=== PATIENT | female | born 1980 | race Caucasian/White ===

== ENCOUNTER 2016-10-24 16:43 | Inpatient (IN) | payer MEDICAID ==
[~2016-10-24] VITALS: Ht 172.7 cm; Wt 108.9 kg
[2016-10-24 17:20] LABS: BASOPHILS 0.1 % (0.0-2.0); EOSINOPHILS 1.8 % (0-7); HEMATOCRIT 35.9 % (36.0-48.0); HEMOGLOBIN 11.8 g/dL (12-16); IMMATURE GRANULOCYTES 0.6 % (0-5); LYMPHOCYTES 17.7 % (15-50); MCH 30.3 pg (26.0-34.0); MCHC 32.9 g/dL (31.0-37.0); MCV 92.3 fL (80.0-100.0); MEAN PLATELET VOLUME 10.2 fL (7.4-10.4); MONOCYTES 9.4 % (2-11); NEUTROPHILS 70.4 % (40-80); PLATELET COUNT 185 10x3/uL (130-400); RBC 3.89 10x6/uL (4.00-5.40); RDW 13.5 % (11.5-14.5); WBC 8.5 10x3/uL (4.8-10.8)
[2016-10-24 17:21] LABS: APPEARANCE CLOUDY (CLEAR); BILIRUBIN NEGATIVE (NEGATIVE); COLOR DK YELLOW (YELLOW); GLUCOSE NEGATIVE (NEGATIVE); KETONE NEGATIVE (NEGATIVE); LEUKOCYTE ESTERASE TRACE (NEGATIVE); NITRITE NEGATIVE (NEGATIVE); PROTEIN NEGATIVE (NEGATIVE); SPECIFIC GRAVITY 1.015 (1.005-1.020)
[2016-10-24 17:22] LABS: RED CELLS - URINE 0-5 /hpf (0-5)
[2016-10-24 17:23] LABS: BACTERIA MODERATE /hpf (NONE SEEN)
[2016-10-24 17:33] LABS: ALBUMIN 3.1 g/dL (3.4-5.0); ALKALINE PHOSPHATASE 271 U/L (46-116); ALT (SGPT) 164 U/L (10-68); AMYLASE - SERUM 115 U/L (25-115); BILIRUBIN - TOTAL 0.94 mg/dL (0.2-1.3); CALC OSMOLALITY 279 mosm/kg (275-300); CALCIUM 8.9 mg/dL (8.5-10.1); CARBON DIOXIDE 27.6 mmol/L (21.0-32.0); CHLORIDE - SERUM 105 mmol/L (98-107); CREATININE - SERUM 0.6 mg/dL (0.6-1.3); GLUCOSE 84 mg/dL (74-106); LIPASE 1300 U/L (73-393); PROTEIN - SERUM 7.1 g/dL (6.4-8.2); SODIUM 142 mmol/L (136-145); UREA NITROGEN 6 mg/dL (7-18); eGFR NON AFRICAN AMERICAN > 90 mL/min (90-120)
[2016-10-25] MEDS ORDERED: FERROUS SULFAT325 MG PO (02:29)
[2016-10-25] MEDS ORDERED: PRENATAL COMPLE1 TAB PO (02:29)
[2016-10-25] MEDS ORDERED: OYST-CAL-5001 TAB PO (02:30)
[2016-10-25 02:31] VITALS: BP 124/70; BMI 36.5
[2016-10-25] MEDS ORDERED: VITAMIN D3400 UNI1 PO (02:31)
--- NOTE | 2016-10-25 02:47 | NUR ---
ADMISSION ASSESSMENT COMPLETED. PT IN BED WITH HOB ELEVATED 30 DEGREES RESTING COMFORTABLY AT THIS TIME. PAIN 2-12/20, RUQ, STATES THAT PAIN INCREASED WITH RN PALPATING ABD. DISCUSSED ORDERED PAIN MEDICATION AND PT REFUSES AT THIS TIME. LR D5W INFUSION INITIATED VIA PUMP TO LEFT BREAT PIV AT 100 MLS/HR PER ORDER. ICE WATER, JELLO, AND CHICKEN NOODLE SOUP PROVIDED TO PATIENT PER REQUEST. ORIENTED TO ROOM AND CL USE, VERBALIZED UNDERSTANDING. SPOUSE LEFT UNIT TO GO HOME TO GET CLOTHES AND WILL RETURN SHORTLY. BED IN LOW POSITION. CL/PHONE WITHIN PT REACH. DENIES NEEDS AT THIS TIME. WILL CONT TO MONITOR AND ASSIST PRN.
--- NOTE | 2016-10-25 03:21 | NUR ---
FHT OBTAINED VIA DOPPLER, 150'S-160'S. PT STATES THAT ON U/S FHR WAS IN THE 150'S WELL.
--- NOTE | 2016-10-25 03:27 | NUR ---
PAIN 6/10, REQUESTED PAIN MEDICATION. PAIN TO RUQ OF ABD, SHARP/STABBING/ACHING. "IT FEELS ALMOST LIKE A BRUISE FEELS WHEN YOU MASH ON IT." 2 MG IVP MORPHINE GIVEN OVER 3 MINUTES. INSTRUCTED PATIENT AND SPOUSE ON MORPHINE AND POSSIBLE SIDE EFFECTS, VERBALIZED UNDERSTANDING. REINFORCED USE OF CL FOR ASSISTANCE OOB D/T MORPHINE AND INCREASED RISK FOR FALLS, VERBALIZED UNDERSTANDING. SPOUSE RETURNED TO ROOM FROM GOING HOME, PILLOW AND BLANKET PROVIDED.
--- NOTE | 2016-10-25 04:05 | NUR ---
PAIN REASSESSMENT COMPLETED. PT WITH EYES CLOSED BUT OPENED WHEN RN OPENED DOOR, PAIN 2/10 AT THIS TIME. DENIES ADDITIONAL NEEDS. SPOUSE RESTING WITH EYES CLOSED IN RECLINER AT BEDSIDE.
--- NOTE | 2016-10-25 04:48 | NUR ---
ROUNDS MADE. SPOUSE AT BEDSIDE. PT SLEEPING AT THIS TIME. RESPIRTATIONS REGULAR. NO S/S OF DISTRESS NOTED. WILL CONT TO MONITOR
--- NOTE | 2016-10-25 06:37 | NUR ---
ROUNDS MADE. PT SLEEPING AT THIS TIME. RESPIRATIONS REGULAR, HOB ELEVATED TO 30 DEGREES. NO S/S OF DISTRESS NOTED. BED IN LOW POSITION. CL/PHONE WITHIN REACH. UPPER SIDE RAILS RAISED X2.
--- NOTE | 2016-10-25 07:45 | NUR ---
RECEIVED PT SITTING IN BED WITH AT BEDSIDE. VITALS TAKEN AND ASSESSMENT MADE AND DOCUMENTED IN FLOW SHEET. STATES "ABDOMEN IS SORE". STATES THAT SHE IS 'WAITING FOR SOMEONE TO TELL ME IF I AM GOING TO HAVE SURGERY TODAY FOR MY GALLBLADDER'. WILL CHECK WITH SURGERY AND/OR DR TO SEE STATIS.
[2016-10-25 07:48] LABS: ALBUMIN 2.5 g/dL (3.4-5.0); ALKALINE PHOSPHATASE 265 U/L (46-116); ALT (SGPT) 188 U/L (10-68); CALC OSMOLALITY 276 mosm/kg (275-300); CALCIUM 7.8 mg/dL (8.5-10.1); CARBON DIOXIDE 26.2 mmol/L (21.0-32.0); CHLORIDE - SERUM 106 mmol/L (98-107); CREATININE - SERUM 0.5 mg/dL (0.6-1.3); GLUCOSE 85 mg/dL (74-106); POTASSIUM - SERUM 3.5 mmol/L (3.5-5.1); PROTEIN - SERUM 5.5 g/dL (6.4-8.2); SODIUM 141 mmol/L (136-145); UREA NITROGEN 5 mg/dL (7-18); eGFR NON AFRICAN AMERICAN > 90 mL/min (90-120)
--- NOTE | 2016-10-25 08:10 | NUR ---
PT WAS SERVED REG MEAL BUT DID NOT EAT ON THE CHANCE THAT SHE MAY HAVE SURGERY. IV RUNNING TO LEFT BREAST IS PATENT. THIS NURSE CALLED SURGERY AND THERE IS NO SURGERY SCHEDULED FOR PT TODAY. HAVE A PAGE IN TO DR. JEAN TO FOLLOW UP. S/R UP X 2, BED IN LOWEST POSITION, CALL LIGHT WITHIN REACH.
[2016-10-25 08:17] VITALS: BP 124/82
--- NOTE | 2016-10-25 08:25 | NUR ---
DR JEAN TO ROOM.
--- NOTE | 2016-10-25 09:10 | NUR ---
PT. STATES THAT SHE IS NOT IN PAIN. O ON NUMERIC SCALE. DR HAS ORDERED LAB AND WILL WAIT UNTIL IT IS BACK TO SEE IF SHE IS NPO OR ON CLEAR LIQUIDS. PT STATES NO NEEDS AT THIS TIME. WILL CONTINUE TO MONITOR.
[2016-10-25 09:56] VITALS: Ht 172.7 cm; Wt 108.9 kg
--- NOTE | 2016-10-25 11:30 | NUR ---
CALLED DR. JEAN TO CONFIRM GIVING ZOSYN SINCE THE INFORMATION GIVEN FOR CONTARINDICATION STATES "EXCLUSION CRITERIA: IMUNOCOMPRIMISED, ACUTE PANCREATITIS, ALLERGY OR NPO." HE STATES THAT IT IS FIRST LINE FOR PANCREATITIS AND TO GIVE.
--- NOTE | 2016-10-25 12:30 | NUR ---
CALLED PHARMACY AND ASKED THEM TO PLEASE DELIVER THE MEDICATIONS FOR PT.
[2016-10-25 12:37] VITALS: BP 121/72
--- NOTE | 2016-10-25 12:41 | NUR ---
PT SITTING IN BED LOOKING ON HER PHONE. STATES THAT THE BROTH WAS TOO SALTY BUT THAT SHE DID EAT THE JELLO. LAB REPORT DID COME IN AND SHE IS ON THE CLEAR LIQUID DIET. STATES NO NEEDS AT THIS TIME.
--- NOTE | 2016-10-25 13:15 | NUR ---
DISCUSSED PATIENT'S PLAN OF CARE FOR THIS HOSPITAL STAY. SHE STATES THAT SHE IS WITHOUT UNCONTROLLED PAIN AT THIS TIME. FOB AND PRIMARY SCHOOL AGED CHILDREN AT THE BEDSIDE. SHE DENIES NEEEDS AT THIS TIME.
--- NOTE | 2016-10-25 14:00 | NUR ---
PAGED DR JEAN. PT FACE FLUSHED STATES THAT HER THROAT AND ROOF OF HER MOUTH ARE SCRATCHY AND SHE 'FEELS FUNNY'.
--- NOTE | 2016-10-25 14:13 | NUR ---
DR. JEAN RETURNED PAGE. THIS NURSE RELAYED THE PTS SYMPTOMS OF RED FACE, SCRATCHY THROAT AND ROOF OF MOUTH, HOARSENESS, AND 'FEELING FUNNY, LIGHT HEADED, AND MY HEAD HURTS'. HE CONFIRMED THAT WE SHOULD DISCONTINUE THE ZOSYN AND HE WILL PRESCRIBE ANOTHER ANTIBIOTIC. VITALS WERE TAKEN AT 1355 WITH B/P OF 97/59, PULSE OX OF 99, PULSE OF 70, RESP 18.
--- NOTE | 2016-10-25 14:25 | NUR ---
CALLED DR HUGO AND INFORMED OF PT REACTION TO ZOSYN. RELAYED SIGNS AND SYMPTOMS. STATES THAT ZOSYN IS CLASS B DRUG AND NO THREAT TO FETUS. ASKED IF BENADRYL WOULD BE IN ORDER AND DR HUGO STATES THAT IT WOULD BE NO PROBLEM TO THE FETUS BUT IT WOULD BE DR JEAN'S CALL.
--- NOTE | 2016-10-25 14:40 | NUR ---
REASSESSED PT REDNESS HAS NOW GONE FROM FACE ONLY TO HER NECK. VOICE IS LESS HOARSE SINCE LAST ASSESSED. PT STATES THAT HER 'HEAD IS LESS STUFFY AND I THINK I AM GETTING BETTER'. DISCUSSED SIGNS AND SYMPTOMS TO REPORT TO NURSE. CALL LIGHT IS WITHIN REACH. STATES THAT SHE ISN'T FEELING LIGHT HEADED ANYMORE. WILL CONTINUE TO MONITOR CLOSELY.
--- NOTE | 2016-10-25 15:08 | NUR ---
PT LYING IN BED STATES SHE 'THINKS THAT IT IS GETTING BETTER BECAUSE MY HEAD ISN'T HURTING LIKE IT WAS'. ADMINISTERED BENADRYL 25 ORDERED. PROVIDED FRESH ICE WATER AND JELLO. ENCOURAGED PT TO DRINK. STATES THAT SHE WANTS TO REST NOW. WILL CONTINUE TO MONITOR.
--- NOTE | 2016-10-25 17:53 | NUR ---
PT RING ATTACHER LIGHT. INFORMED ME THAT SHE RECEIVED A REGULAR TRAY INSTEAD OF CLEAR LIQUIDS. CALLED DIETARY FOR A CLEAR LIQUID TRAY. DENIES OTHER NEEDS AT THIS TIME. PHONE AND CALL LIGHT WITHIN REACH. SRU X2. BED IN LOWEST POSITION.
--- NOTE | 2016-10-25 19:10 | NUR ---
RCVD PT FROM DAY SHIFT RN. PT SITTING UP IN BED AAOX4. DENIES PAIN AT THIS TIME. BREATH SOUNDS CLEAR & UNLABORED X2. S1, S2. 22 G PIV TO LT BREAST WITH LR @ 100 ML/HR. BOWEL SOUNDS ACTIVE X4. ABD SLIGHTLY TENDER ON PALPATION DUE TO PANCREATITIS. SKIN WNL FOR PATIENT. PT IS VOIDING WELL. PT IS 19 WEEKS AND REPORTS FEELING MOVEMENT AT THIS TIME. FAMILY IS AT BEDSIDE. PPP. NO EDEMA NOTED BLE. PT DENIES NEEDS AT THIS TIME. WILL CONTINUE TO MONITOR. BED LOW, WHEELS LOCKED, CL IN REACH. SIDE RAILS UP X2.
--- NOTE | 2016-10-25 19:44 | NUR ---
PATIENT IVF INFUSING. SHE IS WITHOUT NEEDS AT THIS TIME.
--- NOTE | 2016-10-25 20:53 | NUR ---
RN TO BEDSIDE. MAXIPIME IVPB GIVEN PER ORDERS. SEE EMAR. PT TOLERATED WELL WITH NO IMMEDIATE SIGNS OF ADVERSE REACTION. PT DENIES FURTHER NEEDS. WILL CONTINUE POC.
--- NOTE | 2016-10-25 20:54 | NUR ---
CURRENT D5 LR INFUSION COMPLETE. OLD BAG DOWN. NEW BAG UP TO PRESENT TUBING. WILL CONTINUE POC.
--- NOTE | 2016-10-25 21:02 | NUR ---
ROUNDS MADE. PT LYING ON BACK READING A BOOK. PT DENIES NEEDS AT THIS TIME. WILL CONTINUE TO MONITOR.
[2016-10-25 23:55] VITALS: BP 111/67
--- NOTE | 2016-10-26 00:09 | NUR ---
ROUNDS MADE. PT SITTING UP WATCHING TV. SPOUSE AT BEDSIDE. PT DENIES NEEDS. V/S OBTAINED. WILL CONTINUE TO MONITOR.
[2016-10-26 04:20] VITALS: BP 102/62
--- NOTE | 2016-10-26 04:20 | NUR ---
ROUNDS MADE. VSS. ICE WATER GIVEN PER REQUEST. PT STATES THAT SHE WAS GIVEN AND ANBX EARILER TODAY AND HAD A REAX. REQUESTED TO KNOW NAME OF MED, ORDERS REVIEWED. ALLERGY LIST UPDATED AND ALLEGRY BAND PLACED. SPOUSE REMAINS AT BEDSIDE. DENIES ADDITIONAL NEEDS AT THIS TIME.
[2016-10-26 07:30] VITALS: BP 87/47
--- NOTE | 2016-10-26 07:30 | NUR ---
PT LYING TO RIGHT SIDE IN BED. WAKES UPON ENTERING ROOM. SITS UP IN BED FOR VS. VSS. DENIES C/O OR NEEDS.
--- NOTE | 2016-10-26 07:45 | NUR ---
PT AWAKE, ALERT, ORIENTED, RESTING IN BED. IV INFUSING INTO LEFT CHEST PERIPHERAL IV VIA PUMP. FHT'S OBTAINED PER RAMSES GOLD. PT TOLERATING CL DIET.
[2016-10-26 08:02] LABS: BASOPHILS 0.2 % (0.0-2.0); EOSINOPHILS 2.7 % (0-7); HEMATOCRIT 31.8 % (36.0-48.0); HEMOGLOBIN 10.3 g/dL (12-16); IMMATURE GRANULOCYTES 0.5 % (0-5); LYMPHOCYTES 33.5 % (15-50); MCH 30.1 pg (26.0-34.0); MCHC 32.4 g/dL (31.0-37.0); MEAN PLATELET VOLUME 10.3 fL (7.4-10.4); NEUTROPHILS 54.1 % (40-80); PLATELET COUNT 154 10x3/uL (130-400); RBC 3.42 10x6/uL (4.00-5.40); RDW 13.8 % (11.5-14.5); WBC 5.6 10x3/uL (4.8-10.8)
--- NOTE | 2016-10-26 08:05 | NUR ---
PT AMBULATES BACK TO BED FROM BR. FHR 145 VIA DOPPLER. PT STATES BABY ACTIVE AT THIS TIME. DENIES C/O PAIN OR NEEDS.
[2016-10-26 08:25] LABS: ALBUMIN 2.5 g/dL (3.4-5.0); ALKALINE PHOSPHATASE 218 U/L (46-116); ALT (SGPT) 143 U/L (10-68); BILIRUBIN - TOTAL 0.46 mg/dL (0.2-1.3); CALC OSMOLALITY 273 mosm/kg (275-300); CALCIUM 8.4 mg/dL (8.5-10.1); CARBON DIOXIDE 26.2 mmol/L (21.0-32.0); CHLORIDE - SERUM 106 mmol/L (98-107); CREATININE - SERUM 0.6 mg/dL (0.6-1.3); GLUCOSE 87 mg/dL (74-106); LIPASE 147 U/L (73-393); POTASSIUM - SERUM 3.5 mmol/L (3.5-5.1); PROTEIN - SERUM 5.9 g/dL (6.4-8.2); SODIUM 139 mmol/L (136-145); UREA NITROGEN 4 mg/dL (7-18); eGFR NON AFRICAN AMERICAN > 90 mL/min (90-120)
[2016-10-26 08:26] LABS: AMYLASE - SERUM 46 U/L (25-115)
--- NOTE | 2016-10-26 09:37 | NUR ---
RESTING EASILY ON RIGHT SIDE WITH EYES CLOSED, EVEN RESP.
--- NOTE | 2016-10-26 10:38 | NUR ---
PT CONTINUES TO REST EASILY ON SIDE. LEFT UNDISTURBED.
--- NOTE | 2016-10-26 10:52 | NUR ---
DR PHOENIX HERE. VISITS WITH PT.
--- NOTE | 2016-10-26 11:00 | NUR ---
CALLED TO PT'S ROOM. STATES HER IV IS LEAKING. UPON INSPECTIONS LEAKING AT SPIKE SITE OF BAG. NEW BAG PLACED.
--- NOTE | 2016-10-26 12:08 | NUR ---
CL DIET PROVIDED.
--- NOTE | 2016-10-26 12:17 | NUR ---
SITTING UP IN BED READING. NO NEEDS.
--- NOTE | 2016-10-26 13:26 | NUR ---
SITTING UP IN BED READING. CHEERFUL DEMEANOR. NO NEEDS.
--- NOTE | 2016-10-26 14:05 | NUR ---
IV ATB HUNG PER ORDER.
[2016-10-26 14:15] VITALS: BP 101/60
--- NOTE | 2016-10-26 15:07 | NUR ---
SITTING UP IN BED READING. NO NEEDS.
--- NOTE | 2016-10-26 17:20 | NUR ---
PT C/O KAY AND NAUSEA.
--- NOTE | 2016-10-26 17:27 | NUR ---
CALL TO DR. PHOENIX. ORDER FOR TYLENOL REC'D.
--- NOTE | 2016-10-26 17:41 | NUR ---
TYLENOL 650 MG PO GIVEN FOR KAY.
--- NOTE | 2016-10-26 18:07 | NUR ---
RESTING IN BED. WANTS TO WAIT UNTIL HERE FOR SHOWER.
--- NOTE | 2016-10-26 18:14 | NUR ---
JELLO AND APPLE JUICE PROVIDED.
[2016-10-26 19:35] VITALS: BP 100/57
--- NOTE | 2016-10-26 19:35 | NUR ---
AWAKE DURING INITIAL ROUNDS. INTRODUCED SELF. V/S TAKEN. ASSESSMENT DONE. STATUS Dx: PANCREATITIS / 19weeks GESTATION. IVF--D5LR TO L CHEST @ 100cc/hr. IV SITE OK. DENIES PAIN AT THIS TIME. FAMILY IN THE ROOM.
--- NOTE | 2016-10-26 19:40 | NUR ---
DR. JOHNSON HERE AND SPOKE WITH PT--INFORMED HER OF POSSIBLE GB SURGERY ON FRIDAY.
--- NOTE | 2016-10-26 19:50 | NUR ---
FHT--150'S OBTAINED ON RLQ DONE BY Raghavendra TERESA RN.
--- NOTE | 2016-10-26 22:29 | NUR ---
MAXIPIME 1G IVPB ANTIBIOTIC INFUSING. NO ADVERSE REACTION NOTED.
[2016-10-26 23:20] VITALS: BP 113/69
--- NOTE | 2016-10-27 | NUR ---
NEW IV BAG--D5LR 1000cc HUNG.
--- NOTE | 2016-10-27 02:30 | NUR ---
EYES CLOSED. LEFT UNDISTURBED.
--- NOTE | 2016-10-27 04:45 | NUR ---
APPEARS TO BE ASLEEP.
--- NOTE | 2016-10-27 06:19 | NUR ---
MAXIPIME 1G IVPB ANTIBIOTIC INFUSING. NO ADVERSE REACTION NOTED. SLEPT FAIRLY WELL DURING THE NIGHT. CONTINUING PLAN OF CARE.
[2016-10-27 07:42] VITALS: BP 101/59
--- NOTE | 2016-10-27 07:45 | NUR ---
PT AWAKE, ALERT, ORIENTED, SITTING UP IN BED, CHEERFUL DEMEANOR. IV INFUSING VIA PUMP. FHT'S OBTAINED EASILY. NO NEEDS AT THIS TIME. CL DIET PROVIDED. PT ANTICIPATES LAP CHOLY IN AM.
--- NOTE | 2016-10-27 09:20 | NUR ---
TOLERATED CL DIET.
--- NOTE | 2016-10-27 10:42 | NUR ---
MED GIVEN, NEW IV BAG HUNG. NO NEEDS.
--- NOTE | 2016-10-27 11:22 | NUR ---
DR. PHOENIX IN TO SEE PT.
--- NOTE | 2016-10-27 11:54 | NUR ---
CONSENTS OBTAINED AND WITNESSED FOR LAP CHOLY FOR 1-16. ADVISED PT SHE IS ON SURGERY [facility] FOR NOON.
--- NOTE | 2016-10-27 12:26 | NUR ---
CLEAR LIQUID DIET SERVED.
--- NOTE | 2016-10-27 13:24 | NUR ---
PT UP AND ABOUT IN ROOM. LINENS CHANGED. ADVISED NPO AFTER MIDNIGHT TONIGHT.
--- NOTE | 2016-10-27 14:02 | NUR ---
IV ATB HUNG TO EXISTING IV. SITTING UP IN BED NO NEEDS.
--- NOTE | 2016-10-27 15:24 | NUR ---
SITTING UP IN BED WATCHING TV.
--- NOTE | 2016-10-27 16:45 | NUR ---
SITTING UP IN BED TALKING WITH FAMILY.
--- NOTE | 2016-10-27 19:00 | NUR ---
DR. JOHNSON HERE AND SPOKE WITH PATIENT BRIEFLY. FOR GB SURGERY TOMORROW.
[2016-10-27 19:35] VITALS: BP 104/58
--- NOTE | 2016-10-27 19:35 | NUR ---
RE-INTRODUCED SELF. V/S TAKEN. ASSESSMENT DONE. STATUS 19 WEEKS ANTEPARTUM / PANCREATITIS. WITH IVF D5LR TO L CHEST AT 100cc/hr. IV SITE OK. REMINDED PT TO BE NPO AFTER MIDNIGHT. FOR GB SURGERY TOMORROW. VERBALIZED UNDERSTANDING.
--- NOTE | 2016-10-27 19:50 | NUR ---
FHT OBTAINED--150's-160's MID LQ.
--- NOTE | 2016-10-27 22:40 | NUR ---
MAXIPIME 1G IVPB INFUSING. NO ADVERSE REACTION NOTED. NEW BAG OF D5LR STARTED.
[2016-10-27 23:34] VITALS: BP 96/64
--- NOTE | 2016-10-27 23:34 | NUR ---
V/S STABLE. NPO AFTER MIDNIGHT.
[2016-10-28] VITALS (9 sets, daily range): BP systolic 101–142; BP diastolic 61–93
--- NOTE | 2016-10-28 03:30 | NUR ---
EYES CLOSED. LEFT UNDISTURBED.
--- NOTE | 2016-10-28 05:55 | NUR ---
SUPERINTENDENT COMPRESSOR STATIONS HERE TO DRAW AM LAB.
[2016-10-28 06:22] LABS: BASOPHILS 0.2 % (0.0-2.0); EOSINOPHILS 2.3 % (0-7); HEMATOCRIT 30.6 % (36.0-48.0); HEMOGLOBIN 10.3 g/dL (12-16); IMMATURE GRANULOCYTES 0.5 % (0-5); LYMPHOCYTES 33.8 % (15-50); MCH 30.9 pg (26.0-34.0); MCHC 33.7 g/dL (31.0-37.0); MCV 91.9 fL (80.0-100.0); MEAN PLATELET VOLUME 10.7 fL (7.4-10.4); MONOCYTES 9.9 % (2-11); NEUTROPHILS 53.3 % (40-80); PLATELET COUNT 144 10x3/uL (130-400); RBC 3.33 10x6/uL (4.00-5.40); RDW 13.2 % (11.5-14.5); WBC 5.7 10x3/uL (4.8-10.8)
--- NOTE | 2016-10-28 06:30 | NUR ---
SLEPT FAIRLY WELL DURING THE NIGHT. CONTINUING PLAN OF CARE. REMAINED NPO AFTER MIDNIGHT.
[2016-10-28 06:45] LABS: ALBUMIN 2.4 g/dL (3.4-5.0); ALKALINE PHOSPHATASE 159 U/L (46-116); AMYLASE - SERUM 35 U/L (25-115); CALC OSMOLALITY 274 mosm/kg (275-300); CALCIUM 7.7 mg/dL (8.5-10.1); CARBON DIOXIDE 26.6 mmol/L (21.0-32.0); CHLORIDE - SERUM 105 mmol/L (98-107); CREATININE - SERUM 0.6 mg/dL (0.6-1.3); GLUCOSE 82 mg/dL (74-106); LIPASE 95 U/L (73-393); MAGNESIUM - SERUM 1.5 mg/dL (1.8-2.4); PHOSPHOROUS 3.9 mg/dL (2.5-4.9); POTASSIUM - SERUM 3.2 mmol/L (3.5-5.1); PROTEIN - SERUM 5.3 g/dL (6.4-8.2); SODIUM 140 mmol/L (136-145); UREA NITROGEN 4 mg/dL (7-18); eGFR NON AFRICAN AMERICAN > 90 mL/min (90-120)
[2016-10-28 06:48] LABS: ALT (SGPT) 91 U/L (10-68)
--- NOTE | 2016-10-28 07:40 | NUR ---
PT WAS RECEIVED LYING IN BED. SHE STATES THAT SHE IS SUPPOSE TO HAVE GALLBLADDER SURGERY ABOUT 12. SHE OFFERS NO COMPLAINTS AT THIS TIME. GEN- AWAKE AND ALERT. LUNGS- CLEAR. HEART- RRR, ABD- SOFT, WITH TENDERNESS NOTED. BED IS LOW, SIDE RAILS UP X 2 AND CALL LIGHT IN REACH. CONSENT FOR SURGERY SIGNED AND OTHE PAPERS REVEIWED AND COMPLETED.
--- NOTE | 2016-10-28 11:50 | NUR ---
SURGERY CALLED FOR ME TO GIVE PREOP MEDS. PRE OP MEDS GIVEN. CHECKLIST CHECKED WITH JOSE AND CONSENTS REVIEWED.
--- NOTE | 2016-10-28 13:47 | NUR ---
SURGERY IS HERE TO ACCOUNTS ADMINISTRATOR PT FOR SURGERY.
--- NOTE | 2016-10-28 14:47 | NUR ---
HEART TONES: 135
--- NOTE | 2016-10-28 14:52 | NUR ---
PT STATED HURTING A LITTLE BIT BUT WANTED TO WAIT TO RECEIVE PAIN MEDICATION.
--- NOTE | 2016-10-28 15:16 | NUR ---
PT WAS RECEIVED FROM RECOVERY ROOM POST LAP RHONDA. PT IS AWAKE AND ALERT. AT BEDSIDE. VS TAKEN BP 142/86 P-=65 O2 SAT 98 R 16. SHE HAS SMALL LAPAROSCOPIC INCISIONS X 4 WITH BANDAIDS THAT ARE CLEAN DRY AND INTACT. SCD'S INTACT LOWER EXTREMITIES. BED IS LOW, SIDE RAILS UP X 2 AND CALL LIGHT IN REACH.
--- NOTE | 2016-10-28 16:15 | NUR ---
PT SITTING UP IN BED AAOx3. VSS, PT DENIES PAIN OR NAUSEA, OR ANY OTHER NEEDS AT THIS TIME. SRUx2, CL IN REACH. WILL CONT TO MONITOR.
--- NOTE | 2016-10-28 17:56 | NUR ---
PT C/O GAS PAIN AND REQUESTING MEDICATION. WILL CHECK FOR MYLICON ORDER.
--- NOTE | 2016-10-28 19:15 | NUR ---
PM ROUNDS MADE, PT VISITING WITH FAMILY, INFORMED PT THAT I WILL RETURN SHORLTY TO DO ASSESSMENT, PT VERBALIZES UNDERSTANDING, DENIES NEEDS AT THIS TIME
--- NOTE | 2016-10-28 20:21 | NUR ---
ASSESSMENT PER FLOW SHEET, VS OBTAINED, IV IN RIGHT AC INTACT WITH NO REDNESS OR EDEMA INFUSING VIA PUMP D5LR AT 125 ML/HR, 4 LAP INC WITH BANDAIDS CDI WITH NO DRAINAGE NOTED, PT REPORTS "A LITTLE" FLATUS, NO BM, AND VOIDING BY SELF WITH NO DIFFICULTY, ADM NORCO PO PER MD ORDERS FOR PAIN, SEE EMAR, SCD'S ON AND WORKING PROPERLY, PT DENIES FURTHER NEEDS, TRASH REMOVED
--- NOTE | 2016-10-28 20:40 | NUR ---
RUTH ROBBINS RN OBTAINED FHT VIA DOPPLER, T 150
--- NOTE | 2016-10-28 21:10 | NUR ---
PT RATES INC PAIN 12/20, SCD'S OFF, PT UP TO BR WITH ASSISTANCE, GAIT STEADY, VOIDED BY SELF WITH NO DIFFICULTY, PT BACK TO BED, SCD'S BACK ON AND WORKING PROPERLY, PT DENIES FURTHER NEEDS
--- NOTE | 2016-10-28 22:30 | NUR ---
PT RESTING, WENT TO HANG 2230 ANTIBIOTIC BUT NOTICED WHEN SCANNED THAT IT WAS HUNG EARLIER 2 HOURS LATE, PT STATES "YES, THE OTHER NURSE SAID I WAS IN SURGERY WHEN IT WAS DUE, BUT SHE WENT AHEAD AND HUNG IT UP", INFORMED PT THAT I WILL WAIT AND ADM IT AROUND MIDNIGHT, PT VERBALIZES UNDERSTANDING, DENIES NEEDS AT THIS TIME
--- NOTE | 2016-10-28 23:50 | NUR ---
PT AWAKE, ADM MAXIPIME IVPB PER MD ORDERS, SEE EMAR, PT REQUESTS PAIN MED WHEN DUE, INFORMED PT THAT I WILL BE BACK IN AROUND 1230AM TO ADM, PT VERBALIZES UNDERSTANDING, VS OBTAINED PER JORDI BOYCE RN, REQUESTED AND SERVED LEMON MARSHALL SODA, DENIES FURTHER NEEDS
--- NOTE | 2016-10-29 00:37 | NUR ---
PT AWAKE, ADM NORCO PO PER MD ORDERS, SEE EMAR, PT DENIES FURTHER NEEDS
--- NOTE | 2016-10-29 02:30 | NUR ---
PT RESTING WITH EYES CLOSED, RESP QUIET, NO DISTRESS NOTED, LEFT UNDISTURBED AT THIS TIME
[2016-10-29 04:39] VITALS: BP 106/65
--- NOTE | 2016-10-29 04:39 | NUR ---
PT RESTING WITH EYES CLOSED, AROUSES TO SOFT VERBAL STIMULATION, VS OBTAINED, I&O'S COLLECTED, ADM NORCO PO PER MD ORDERS FOR PAIN, SEE EMAR, PT DENIES FURTHER NEEDS
--- NOTE | 2016-10-29 06:15 | NUR ---
PT AROUSES TO OPENING OF DOOR, DENIES NEEDS OR PAIN AT THIS TIME
--- NOTE | 2016-10-29 06:25 | NUR ---
LAB TO ROOM FOR AM BLOOD DRAW
[2016-10-29 06:47] LABS: BASOPHILS 0.2 % (0.0-2.0); EOSINOPHILS 1.7 % (0-7); HEMATOCRIT 29.9 % (36.0-48.0); HEMOGLOBIN 9.8 g/dL (12-16); IMMATURE GRANULOCYTES 0.5 % (0-5); LYMPHOCYTES 21.5 % (15-50); MCH 30.2 pg (26.0-34.0); MCHC 32.8 g/dL (31.0-37.0); MCV 92.3 fL (80.0-100.0); MEAN PLATELET VOLUME 10.8 fL (7.4-10.4); MONOCYTES 8.4 % (2-11); NEUTROPHILS 67.7 % (40-80); PLATELET COUNT 126 10x3/uL (130-400); RBC 3.24 10x6/uL (4.00-5.40); RDW 13.3 % (11.5-14.5); WBC 6.6 10x3/uL (4.8-10.8)
--- NOTE | 2016-10-29 07:00 | NUR ---
SHIFT REPORT TO DAY SHIFT
[2016-10-29 07:19] LABS: ALBUMIN 2.2 g/dL (3.4-5.0); ALKALINE PHOSPHATASE 144 U/L (46-116); ALT (SGPT) 76 U/L (10-68); BILIRUBIN - TOTAL 0.42 mg/dL (0.2-1.3); CALC OSMOLALITY 278 mosm/kg (275-300); CALCIUM 7.9 mg/dL (8.5-10.1); CARBON DIOXIDE 25.7 mmol/L (21.0-32.0); CHLORIDE - SERUM 108 mmol/L (98-107); CREATININE - SERUM 0.6 mg/dL (0.6-1.3); GLUCOSE 81 mg/dL (74-106); POTASSIUM - SERUM 3.3 mmol/L (3.5-5.1); PROTEIN - SERUM 5.4 g/dL (6.4-8.2); SODIUM 142 mmol/L (136-145); UREA NITROGEN 4 mg/dL (7-18); eGFR NON AFRICAN AMERICAN > 90 mL/min (90-120)
[2016-10-29 07:30] VITALS: BP 120/92
--- NOTE | 2016-10-29 07:30 | NUR ---
PT RECIEVED SITTING UP IN BED EATING BREAKFAST. VSS. HEART RHYTHM REGULAR. LUNG SOUNDS CLEAR BILATERALLY. BOWEL SOUND ACTIVE X4 QUAD. SCDS ON. PT RATES PAIN 6 ON SCALE OF 0-10. 4 LAPAROSCOPIC INCISIONS NOTED TO ABDOMEN COVERED WITH BAND-AIDS. CDI. INFORMED PT SHE COULD HAVE A NORCO AT 0845. PT DENIES OTHER NEEDS AT THIS TIME. BED IN LOWEST POSITION. PHONE AND CALL LIGHT WITHIN REACH. SIDE RAILS UP X2.
--- NOTE | 2016-10-29 08:10 | NUR ---
SCD'S REMOVED TO ALLOW PATINET TO GET UP TO THE RESTROOM. SHE IS WITHOUT C/O DIZZINESS, UNSTEADINESS. HER IVF ARE INFUSING TO RIGHT AC PER ORDERS. SITE IS WITHOUT REDNESS, SWELLING.
--- NOTE | 2016-10-29 08:25 | NUR ---
PT SITTING UP IN BED ON CELL PHONE. DENIES NEEDS AT THIS TIME. BED IN LOWEST POSITION. PHONE AND CALL LIGHT WITHIN REACH. SIDE RAILS UP X2.
--- NOTE | 2016-10-29 09:17 | NUR ---
PT SITTING UP IN BED. ADMINISTERED MAXIPIME IVPB. HUNG BAG OF D5 LR. PT RATES PAIN 6 ON SCALE OF 0-10. ADMINISTERED NORCO PO. PT REQUESTS ICE WATER. DENIES OTHER NEEDS AT THIS TIME. BED IN LOWEST POSITION. PHONE AND CALL LIGHT WITHIN REACH. SIDE RAILS UP X2.
--- NOTE | 2016-10-29 10:00 | NUR ---
Nutrition Follow Up: Pt reported that she felt okay - just sore. She said that her appetite was okay. RD encouraged pt to make staff aware of any food preferences and pt stated that she understood. Noted pt is POD 1 Marky Tsang. Diet: Clear Liquid No new wt to assess Labs noted Meds: D5LR @ 50 ml/hr, Zofran Rec advancing diet as tolerated when medically feasible. Will provide selective menus and honor food preferences. RD following.
--- NOTE | 2016-10-29 10:10 | NUR ---
REASSESSED PTS PAIN LEVEL. PT RATES PAIN 3 ON SCALE OF 10 AND STATES "IT IS MUCH BETTER." DENIES FURTHER NEEDS AT THIS TIME. BED IN LOWEST POSITION. PHONE AND CALL LIGHT WITHIN REACH. SIDE RAILS UP X2.
[2016-10-29] MEDS ORDERED: HYDROCODONE-APA1 TAB PO (10:36)
--- NOTE | 2016-10-29 11:25 | NUR ---
PT SITTING UP IN BED. ADMINISTERED FLORAJEN TABLET. PT DENIES OTHER NEEDS AT THIS TIME. BED IN LOWEST POSITION. PHONE AND CALL LIGHT WITHIN REACH. SIDE RAILS UP X2.
--- NOTE | 2016-10-29 12:30 | NUR ---
PT SITTING UP IN BED. DENIES NEEDS AT THIS TIME. BED IN LOWEST POSITION. PHONE AND CALL LIGHT WITHIN REACH. SIDE RAILS UP X2.
--- NOTE | 2016-10-29 13:30 | NUR ---
DR. HUGO IN ROOM WITH PT. NO NEEDS NOTED.
--- NOTE | 2016-10-29 13:51 | NUR ---
PT REQUESTED MEDICATION FOR PAIN. RATES PAIN 6 ON SCALE OF 0-10. ADMINISTERED NORCO. PT DENIES FURTHER NEEDS AT THIS TIME. BED IN LOWEST POSITION. PHONE AND CALL LIGHT WITHIN REACH. SIDE RAILS UP X2.
[2016-10-29 14:15] LABS: HEMATOCRIT 33.6 % (36.0-48.0); MCH 30.6 pg (26.0-34.0); MCHC 32.7 g/dL (31.0-37.0); MCV 93.3 fL (80.0-100.0); MEAN PLATELET VOLUME 11.2 fL (7.4-10.4); RBC 3.6 10x6/uL (4.00-5.40); RDW 13.3 % (11.5-14.5); WBC 7.8 10x3/uL (4.8-10.8)
--- NOTE | 2016-10-29 14:36 | NUR ---
PT LYING IN BED WITH FAMILY AT BEDSIDE. REASSESSED PAIN. PT RATES PAIN 2 ON SCALE OF 0-10. INFORMED PT WE WERE WORKING ON DISCHARGE PAPERWORK. PT DENIES OTHER NEEDS AT THIS TIME. BED IN LOWEST POSITION. PHONE AND CALL LIGHT WITHIN REACH. SIDE RAILS UP X2.
--- NOTE | 2016-10-29 15:15 | NUR ---
PT SITTING UP IN BED. DISCUSSED DISCHARGE INSTRUCTIONS WITH PT. PT VERBALIZED UNDERSTANDING. REMOVED PT IV. CATHETER INTACT. GAVE PRESCRIPTIONS AND FOLLOW UP APPOINTMENT DISCUSSED. ALSO DISCUSSED WOUND CARE. PT VERBALIZED UNDERSTANDING.
--- NOTE | 2016-10-29 15:34 | NUR ---
PT DISCHARGED HOME VIA WHEELCHAIR TO AWAITING VEHICLE ACCOMPANIED BY FAMILY.
--- NOTE | 2016-11-05 13:47 | OP ---
PATIENT NAME: LISA JASSO MEDICAL RECORD: [id number] :81 LOCATION:[facility] ADMISSION DATE:10/24/16 SURGEON: LIBAN JEAN MD DATE OF OPERATION: 10/28/2016 PREOPERATIVE DIAGNOSES: 1. Acute cholecystitis. 2. Acute pancreatitis. 3. A 19 weeks . POSTOPERATIVE DIAGNOSES: 1. Acute cholecystitis. 2. Acute pancreatitis. 3. A 19 weeks . PROCEDURE: Laparoscopic cholecystectomy. SURGEON: Liban Jean MD REPORT OF PROCEDURE: The patient's abdomen was prepped and draped in sterile fashion. A cutdown was made on the superior aspect of the umbilicus, 0 Vicryls were placed in the fascia bilaterally and the fascia was incised with 15-blade. I then bluntly entered the peritoneal cavity and placed a 12-mm Adis port. Under direct visualization, a 5 mm trocar was placed in the epigastrium and 2 more 5-mm trocars were placed in the right subcostal region. The gallbladder was elevated and noted to be mildly inflamed with a large amount of stones present within it. The cystic artery and cystic duct were dissected free. The cystic artery actually had a few branches, all of these structures were clipped proximally and distally and ligated in standard fashion. The cystic duct was a little dilated. We were eventually able to take the gallbladder off the liver bed using electrocautery. Any bleeding from the liver bed was then treated with electrocautery. We irrigated out the right upper quadrant and assured there was no sign of any bleeding or bile leakage. At this point, the ports and insufflation were then removed and the gallbladder was taken out through the umbilicus. The umbilical fascia was closed with interrupted 0 Vicryls times 3. The wounds were irrigated out with normal saline and then infused with 10 mL of 0.25% Marcaine with epinephrine. The skin incisions were all closed with subcutaneous 5-0 Monocryl and dressed appropriately. COMPLICATIONS: None. CONDITION: Stable. ANESTHESIA: General endotracheal and local. BLOOD LOSS: 30 mL. TRANSINT:[id number] Voice Confirmation ID: [id number] DOCUMENT ID: [id number] OPERATIVE REPORT [id number] LISA JASSO LIBAN JEAN MD at 1349 CC: AMARA HUGO MD [id number] DICTATION DATE: 10/28/16 1438 STEREOPTICIAN: 10/28/16 1547 DIS IN 10/29/16 [id number] [place] [address]
== END 2016-10-29 16:07 | disposition home or self-care (01) | DRG 781 ==
LOC: D.ER 16:43 → EDBD 16:43 → D.WS 22:57
PROVIDERS: Emergency Medicine; Surgery; ADMIT Specialist
PROC: 0FT44ZZ Resection of Gallbladder, Percutaneous Endoscopic Approach (ICD-10-PCS; principal; 2016-10-28 12:00)
DX: O99.612 Diseases of the digestive system complicating pregnancy, second trimester (principal); K85.90 Acute pancreatitis without necrosis or infection, unspecified; K81.0 Acute cholecystitis; Z3A.19 19 weeks gestation of pregnancy; O99.212 Obesity complicating pregnancy, second trimester